=== PATIENT | female | born 1995 ===

== ENCOUNTER 2024-01-23 12:10 | Emergency (ER) | payer MEDICAID ==
[2024-01-23 12:21] VITALS: TEMP 98.1
[2024-01-23] MEDS ORDERED: diphenhydrAMINE 50 MG/ML 1 ML VIAL IV ONE (13:00)
[2024-01-23] MEDS ORDERED: diphenhydrAMINE 50 MG/ML 1 ML VIAL IM ONE (13:00)
[2024-01-23] MEDS ORDERED: Ketorolac 30 MG/ML VIAL IM ONE (13:00)
[2024-01-23 14:48] VITALS: BP 98/65; PULSE 74
== END 2024-01-23 14:51 | disposition home or self-care (01) ==
LOC: COL.ER 12:10
DX: R51.9 Headache, unspecified (principal)
CPT/HCPCS: J1200; J1885